=== PATIENT | male | born 1990 | race Caucasian/White ===

== ENCOUNTER 2018-04-15 20:13 | Emergency (ER) | payer SELFPAY | END 2018-04-15 22:24 | disposition left against medical advice (07) | LOC: E/R 20:13 | DX: Z53.21 Procedure and treatment not carried out due to patient leaving prior to being seen by health care provider (principal) ==

== ENCOUNTER 2018-05-06 07:58 | Emergency (ER) | payer SELFPAY | END 2018-05-06 08:42 | disposition home or self-care (01) | LOC: FTE 07:58 | DX: F15.10 Other stimulant abuse, uncomplicated (principal); R20.2 Paresthesia of skin; F17.210 Nicotine dependence, cigarettes, uncomplicated | CPT/HCPCS: 99282 ==